=== PATIENT | female | born 1960 | race Caucasian/White ===

== ENCOUNTER 2019-01-03 06:36 | Observation (INO) ==
[2019-01-03] MEDS ORDERED: MIDAZOLAM HCL 1 MG/ML 2ML VIAL ONE (08:02)
[2019-01-03] MEDS ORDERED: HEPARIN (PORCINE) 1000 UNIT/ML 10 ML (CATH LAB USE ONLY) ONE (08:02)
[2019-01-03] MEDS ORDERED: fentaNYL citrate 100 MCG/2 ML VIAL ONE (08:02)
[2019-01-03] MEDS ORDERED: NITROGLYCERIN/D5W 100MCG/ML 20ML SYR ONE (08:03)
[2019-01-03] MEDS ORDERED: NiCARDipine HCL INJ 2.5 MG/ML 10 ML AMP ONE (08:03)
--- NOTE | 2019-01-03 08:26 | Pre Anesthesia Assessment ---
Date of Service January 03, 2019 Pre Sedation Assessment Vital Signs Temp Pulse Resp BP Pulse Ox 01/03/19 07:10 36.7 C 61 16 183/80 H 95 Cardiovascular RRR, no murmur, no edema Respiratory normal respiratory effort, lungs clear to auscultation Pre-Sedation Airway Assessment Smoking Status: Never smoker Hx Sleep Apnea: Yes Short, Thick Neck: No Thyromental Distance: > or= 3.5 Finger Breadths Oral Cavity: + WNL Mallampati Class: III ASA: ASA3 NPO Status Date of Last Intake of Fluids: 01/03/19 Time of Last Intake of Fluids: 06:30 Last Oral Intake of Fluids Comment: sips with pills Date of Last Intake of Solid Food: 01/02/19 Time of Last Intake of Solid Foods: 18:00 Procedure Planning Contraindications for Sedation: none Current Medications Reviewed: Yes Notes The planned sedation has been discussed with the patient. Informed Consent was obtained. I have identified the patient, determined the appropriateness of belinda tion and have assessed the patient immediately prior to the procedure. All medicine(s) and interventions are by my order.
--- NOTE | 2019-01-03 08:26 | History & Physical Bridge Note ---
Date of Service January 03, 2019 History & Physical Bridge Note I have examined the patient, reviewed the History & Physical and in the interval since the performance of the History & Physical I have noted the following changes of clinical significance: no changes noted
--- NOTE | 2019-01-03 09:02 | Post Anesthesia Assessment ---
Date of Service January 03, 2019 Post Sedation Assessment Vital Signs Temp Pulse Resp BP Pulse Ox 01/03/19 07:10 36.7 C 61 16 183/80 H 95 Post Sedation Plan On clinical assessment, the patient appears to have tolerated the sedation without complications. Patient is recovering as anticipated. Patient will continue to be monitored by nursing and may be discharged when sedation discharge criteria are met per below protocol. Upon Completions of procedure and additional 15 minutes continue every 5 minute vital signs and the P.A.R. score; then discharge to a Phase I or Fast Track to Phase II per the following guidelines: * Discharge Patient to appropriate Phase II area if PAR is 8 or greater or return to pre- procedure baseline. The post - procedure orders will be as directed. * If PAR score is less than 8 or not return to pre-procedure baseline then patient will follow Phase I monitoring till PAR is reached for Phase II. The Phase I may be done in procedure room or may call to secure a Phase I area. * If naloxone or flumazenil are used for reversal, hold in Phase I for continued monitoring from when last reversal dose was given for a minimum of 60 minutes or longer pending the nurse and/or physician discretion of patient condition before discharge to Phase II. Please call the Sedation Physician to re-evaluate and complete post-note for discharge to Phase II area. Do NOT discharge from procedure sedation or Phase 1 until post- sedation evaluation note is complete by procedure /sedation MD Sedation Discharge Instructions to be given to the patient at discharge to home.
--- NOTE | 2019-01-03 09:06 | Cardiac Catheterization ---
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 Start 0836. End 0854. 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 Holding/Recovery ACC Data: Fish Seiner Cardiac Status Clinical evaluation leading to the procedure CAD Presenation: Positive Stress Test (Equivocal stress test with reproduction of anginal symptoms at low workload.) and Stable angina Anginal Classification: CCS III Heart Failure: No Imaging Studies Past 6 Months: Yes Stress Studies Past 6 Months: Yes Stress Echocardiogram: Yes - Indeterminant Coronary Anatomy Dominant: Left Left Main (% Stenosis): Normal LAD (% Stenosis): Normal (Large, type III vessel which wraps around the left ventricular apex) D1 (% Stenosis): Normal D2 (% Stenosis): Normal (1m vessel) D3 (% Stenosis): Normal (1mm vessel) Circumflex (% Stenosis): Normal OM1 (% Stenosis): Normal L PL1 (% Stenosis): Normal L PDA (% Stenosis): Normal RCA (% Stenosis): Normal AM (% Stenosis): Normal Diagnostic Physicians Name: Lino Rosenberg DO Status: Elective Closure Device Percutaneous Entry Location: Radial Closure Device: Radial Band Recommendations: Medical Therapy and/or Counseling Intraprocedure Events Significant Disection: No Perforation: No
[2019-01-03] MEDS ORDERED: HydrALAZINE HCL 20 MG/ML VIAL ONE (10:37)
[2019-01-03] MEDS ORDERED: NITROGLYCERIN 2% OINTMENT 30GM TUBE ONE (11:20)
[2019-01-03] MEDS ORDERED: NITROGLYCERIN SL 0.4 MG/TAB TAB ONE (11:21)
[2019-01-03] MEDS ORDERED: LABETALOL HCL IV 5 MG/ML 20ML (CATH LAB USE ONLY) ONE (11:22)
[2019-01-03] MEDS ORDERED: hydroCHLOROthiazide 25 MG TAB PO STA (11:41)
[2019-01-03] MEDS ORDERED: hydroCHLOROthiazide 25 MG TAB ONE (11:49)
[2019-01-03] MEDS ORDERED: OPTIRAY 320 125ml IV PRN (12:38)
--- NOTE | 2019-01-03 12:48 | CT Scan Report ---
CT OF THE CHEST WITH IV CONTRAST CLINICAL HISTORY: Chest pain status post cardiac catheterization. Evaluate for dissection and pulmona ry embolism.. COMPARISON STUDY: No previous studies for comparison. TECHNIQUE: Unenhanced images were initially acquired through the thorax. Following the IV administra tion of 119 mL of Optiray-320, CT of the thorax was performed from the thoracic inlet to the lung bas es. Images are reviewed in the axial, sagittal, and coronal planes. IV contrast was administered with out complication. A dose lowering technique was utilized adhering to the principles of ALARA. Imaging was performed. CT DOSE: 1820.33 mGy.cm FINDINGS: Thyroid: The thyroid is either atrophic or surgically absent. Thoracic aorta: Noncontrast images reveal no evidence of acute thoracic hematoma. Postcontrast images reveal no evidence of thoracic aortic aneurysm or dissection. Pulmonary vasculature: There are no pulmonary artery filling defects to indicate acute pulmonary embo lism. The examination is moderately limited due to respiratory motion artifact. HEART: No pericardial effusion is visualized. Lungs and pleural spaces: There are no pleural effusions. There are dependent atelectatic changes. Th ere is respiratory motion artifact. No pneumothorax is visualized. Mediastinum: There is no mediastinal lymphadenopathy. Jessica: There is no nodes of pathologic hilar adenopathy Axilla: There is no nodes of pathologic axillary lymphadenopathy Upper abdomen: There is hepatic steatosis. There is hepatosplenomegaly. Skeletal structures: There are no lytic or blastic osseous lesions. IMPRESSION: 1. No evidence of thoracic aortic aneurysm or dissection 2. No evidence of acute pulmonary embolism 3. Hepatic steatosis. Hepatosplenomegaly 4. No evidence of pneumothorax. Electronically signed by: Tim Mendoza M.D. 01/03/2019 12:47 PM
--- NOTE | 2019-01-03 15:22 | History & Physical Report ---
Date of Service January 03, 2019 Assessment & Plan (1) S/P cardiac catheterization: (2) Chest pain: Pt had routine cardiac catheterization today secondary to angina and positive stress test. Cardiac cath with normal coronary arteries. Post cath patient developed mid chest pain improved with nitroglycerin. -monitor on tele -CTA chest negative for PE, dissection or pneumothorax -cardiology on board -nitroglycerin paste per cardiology -monitor cbc, bmp (3) HTN (hypertension): BP currently 158/82. BP was 184/81. Was given hydralazine 10mg po, HCTZ 25mg -continue lisinopril -monitor BP (4) Dyslipidemia: -continue statin (5) Hypothyroidism: -continue levothyroxine (6) GERD (gastroesophageal reflux disease): -continue H2 abigail (7) Sleep apnea: -CPAP HS (8) Urge incontinence of urine: -continue oxybutynin DVT Prophylaxis -SCDs, ambulate Follows with Dr Sy for routine care Pt was seen with Dr Castro. See addendum History of Present Illness Chief Complaint: CP post cardiac cath Primary Care Provider: Oniel Sy MD Pt is 58 y/o F with PMH HTN, dyslipidemia, hypothyroidism, GERD, MILO, obesity presented for routine cardiac catheterization today secondary to angina and positive stress test. Cardiac cath with normal coronary arteries. Post cath patient developed mid chest pain improved with nitroglycerin. Pt reports chronic SOB with climbing stairs, denies current SOB. Reports chronic lower extremity edema improves some with elevation. Denies fever/chills, diaphoresis, N/V/D/C, MARSHALL, dizziness, syncope, vision changes, neck pain, orthopnea, palpitations, cough, sore throat, choking, otalgia, rhinorrhea, abdominal pain, paresthesias, weakness, rashes, urinary symptoms. Allergies Allergy/AdvReac Type Severity Reaction Status Date / Time ibuprofen Allergy Intermediate HIVES Verified 09/17/14 09:31 shellfish derived Allergy Intermediate RASH Verified 09/17/14 09:31 Bactrim Allergy Unknown hives Verified 09/17/14 09:31 Home Medications Home Medications Medication Instructions Recorded Confirmed Type cholecalciferol (vitamin D3) 5,000 unit PO DAILY 01/02/19 01/02/19 History furosemide 80 mg PO WK PRN 01/02/19 01/02/19 History potassium chloride 10 meq PO WK 01/02/19 01/02/19 History ranitidine HCl 300 mg PO HS 01/02/19 01/02/19 History aspirin 81 mg PO DAILY 01/03/19 01/03/19 History folic acid 2 mg PO DAILY 01/03/19 01/03/19 History levothyroxine 200 mcg PO DAILY 01/03/19 01/03/19 History lisinopril 20 mg PO DAILY 01/03/19 01/03/19 History oxybutynin chloride 5 mg PO DAILY 01/03/19 01/03/19 History pravastatin 40 mg PO HS 01/03/19 01/03/19 History Past Med/Surg History Medical History Hypothyroidism (Chronic) GERD (gastroesophageal reflux disease) (Chronic) Dyslipidemia (Chronic) HTN (hypertension) (Chronic) Sleep apnea (Chronic 06/06/12) Tonsillectomy and adenoidectomy (Chronic 06/06/12) Urge incontinence of urine (Chronic 06/06/12) Surgical History Hx of cardiac cath (Chronic) 01/03/19 - [facility] - normal coronary arteries History of cholecystectomy (Chronic) Family History Other Coronary heart disease Diabetes Hypertension Social History Preferred Language: Senegalese Communication Ability: Effective Shift Mgr Required: No Beliefs That Will Affect Care: None Current Living Situation: Spouse Other Information That Helps Us Care for You: No Feels Safe at Home: Yes Safety Concerns: Feels Safe At This Time Smoking Status: Never smoker Hx Alcohol Use: No Hx Substance Use: No Review of Systems All systems reviewed & are unremarkable except as noted in HPI & below Physical Exam Vital Signs (Past 24 Hours): Last Vital Signs Temp 36.5 C 01/03/19 14:53 Pulse 73 01/03/19 14:53 Resp 18 01/03/19 14:53 BP 158/82 H 01/03/19 14:53 Pulse Ox 92 01/03/19 14:53 Physical Exam: General: no distress, obese Head: normocephalic, atraumatic Eyes: conjunctiva non-injected, anicteric ENT: normal inspection external ears, nose, mucous membranes moist Neck: supple, trachea midline Lungs: clear, no respiratory distress, no wheezing/rhonchi/rales CV: RRR, no murmur Abd: normal BS, soft, non-tender Ext: no cyanosis, no calf tenderness Neuro: A&O x 3, no focal deficits noted, normal affect Skin: warm, dry Results & Data ECG Rate (beats per minute): 79 Rhythm: sinus rhythm Supervising Physician Co-Signing Physician Notes I have seen and examined the patient and have discussed the case with the provider above. I agree with the assessment and plan as stated. Matthew,
[2019-01-03] MEDS: NITROGLYCERIN 2% OINTMENT 30GM TUBE EXT SCH ×2 (16:33→21:20)
[2019-01-03] MEDS ORDERED: ALUMINUM/MAGNESIUM SUSP 72 ML, LIDOCAINE HCL VISCOUS 2% 24 ML, BARCODE IDENTIFIER 1 EA PO PRN (20:08)
[2019-01-03] MEDS ORDERED: MoRPHine SULFATE 2 MG/ML CARP IV PRN (20:08)
[2019-01-03] MEDS ORDERED: CALCIUM CARBONATE 500 MG CHEWABLE TAB PO PRN (20:08)
[2019-01-03] MEDS ORDERED: TRAMADOL HCL 50 MG TABLET PO PRN (20:10)
[2019-01-03] MEDS ORDERED: PRAVASTATIN SOD 40 MG TAB PO SCH (21:00)
[2019-01-04] MEDS: NITROGLYCERIN 2% OINTMENT 30GM TUBE EXT SCH (00:42)
[2019-01-04] MEDS ORDERED: INFLUENZA VIRUS QUAD VACCINE 0.5 ML SYR IM ONE (01:30)
[2019-01-04] MEDS ORDERED: INFLUENZA ADMINISTRATION CHARGE ONE (01:30)
[2019-01-04] MEDS ORDERED: LEVOTHYROXINE SODIUM 200 MCG TABLET PO SCH (06:30)
[2019-01-04 07:25] LABS: Hematocrit (blood only) 39.7 % (37-47); Hemoglobin 13.5 g/dL (12.0-16.0); Mean Corpuscular Volume 92.3 fL (80-100); Mean Platelet Volume 10.9 fL (7.4-10.4); Platelet Count 174 K/uL (130-400); RDW Coefficient of Variation 12.8 % (11.5-14.5); RDW Standard Deviation 42.9 fL (36.4-46.3); White Blood Count 8.43 K/uL (4.8-10.8)
[2019-01-04 07:47] LABS: BUN Creatinine Ratio 19.4 (10-20); Calcium 9.3 mg/dl (8.5-10.1); Creatinine Clr Calc Pharmacy 103.8 ml/min; Est GFR (African American) 83.4; Est GFR (Non-African American) 71.9; Magnesium 2.1 mg/dl (1.8-2.4); Potassium 3.7 mmol/L (3.5-5.1)
[2019-01-04] MEDS ORDERED: FOLIC ACID 1 MG TAB PO SCH (09:00)
[2019-01-04] MEDS ORDERED: OXYBUTYNIN CHLORIDE XL 5 MG TABCR PO SCH (09:00)
[2019-01-04] MEDS ORDERED: CHOLECALCIFEROL 1,000 UNITS TAB PO SCH (09:00)
[2019-01-04] MEDS ORDERED: LISINOPRIL 20 MG TAB PO SCH (09:00)
[2019-01-04] MEDS ORDERED: ASPIRIN 81 MG ECTAB PO SCH (09:00)
--- NOTE | 2019-01-04 09:21 | Hospitalist Progress Note ---
Date of Service January 04, 2019 Assessment & Plan (1) S/P cardiac catheterization: (2) Chest pain: Pt had routine cardiac catheterization 01/03/19 secondary to angina and positive stress test. Cardiac cath with normal coronary arteries. Post cath patient developed substernal chestpain; therefore admitted for overnight observation Tele monitoring overnight revealed sinus mallory-NSR 50-70s CTA chest done yesterday negative for PE, dissection or pneumothorax Cardiology following Blood pressure much improved and no ECG changes, HCTZ added Sx improved with tramadol administration Sx likely non cardiac in origin given normal coronary arteries, would recommend significant weight loss program which may help alleviate sx Cardiology has seen and evaluated the patient and she is cleared for discharge (3) HTN (hypertension): BP improved 141/68 HR 59 continue lisinopril, HCTZ added per cardiology (4) Dyslipidemia: continue statin (5) Hypothyroidism: continue levothyroxine TSH WNL 10/2017 check TSH (6) Elevated fasting glucose: -bsg 118 -A1C 6.1 11/22/18 -recommend diet and lifestyle modifications (7) GERD (gastroesophageal reflux disease): continue H2 abigail (8) Sleep apnea: CPAP HS (9) Urge incontinence of urine: continue oxybutynin DVT Prophylaxis SCDs, ambulate Disposition: Patient to be discharged today Follows with Dr Sy for routine care, hospital follow up 01/09/19 @ 11:05am Pt was seen and examined in collaboration with Dr. Em, please see addendum Supervising Physician Co-Signing Physician Notes Patient is seen and examined at bedside. Offers no complaints. Denies any chest pain, shortness of breath, dizziness, abdominal pain, nausea. Eager to get discharged. On exam patient is obese, no distress, lungs are clear to auscultation, S1-S2, positive murmur, abdomen soft nontender, bilateral nonpitting edema, neurologically no focal deficits. Patient had normal coronary arteries on cardiac catheterization. HCTZ added for blood pressure control. Patient plan to be discharged. Needs follow-up with cardiology as outpatient upon discharge. I personally reviewed the record. Patient is interviewed and examined at bedside. Patient's care is coordinated with Arlyn Gottlieb PA-C. Please refer to the documentation above for details of patient's presentation and for discussion of other issues. Subjective Patient was seen and evaluated in room 239-2 Follow-up s/p cardiac catheterization on 01/03 postop chest pain and HTN. She is sitting up in bedside chair. Overall feels well this morning. States she had episode of chest pain this morning when going to bathroom. Recently received tramadol which improved and alleviated symptoms. Currently no chest pain present. Postop yesterday she developed chest pain that was 8/10. Made worse with exertion. Symptoms similar to prior chest pain which prompted cardiac cath. Chest pain is substernal, nonradiating, lasted approximately 10 minutes, recently alleviated with tramadol, not improved with nitro or Nitropaste. Symptoms are not positional and are not made worse with deep breaths or movement. They can come on at rest and with exertion. Symptoms not related to meals, although she did have episode last evening after eating dinner. She denies and sob, pleitez, palpitations, n/v, weakness, lightheaded, dizziness associated with chest pain. Further denies f/c/s, abdominal pain, change in bowel or urinary habits. Ate all of breakfast w/o difficulty. Physical Exam Vital Signs (Past 24 Hours): Last Vital Signs Temp 36.5 C 01/04/19 07:51 Pulse 59 L 01/04/19 09:07 Resp 18 01/04/19 07:51 BP 141/68 H 01/04/19 09:07 Pulse Ox 96 01/04/19 07:51 Physical Exam: Gen: WD/WN, F, morbidly obese, sitting in bedside chair, NAD, A&O x3 HEENT: Normocephalic, atraumatic, conjunctivae moist, sclerae anicteric, mucous membranes moist. Lung: Clear to Auscultation bilaterally, no wheezes/rales/rhonchi Heart: Regular rate, regular rhythm, soft 1/6 HOANG noted RUSB, no rubs, or gallops Abdomen: Soft, NT, +obese, +BS x 4 Extremities: b/l nonpitting edema Skin: Warm, no rash, negative turgor. Results & Data Laboratory Results Short CBC 01/04/19 Range/Units 07:03 WBC 8.43 (4.8-10.8) K/uL Hgb 13.5 (12.0-16.0) g/dL Hct 39.7 (37-47) % Plt Count 174 (130-400) K/uL BMP 01/04/19 07:03 Sodium 141 Potassium 3.7 Chloride 109 H Carbon Dioxide 26 BUN 17 Creatinine 0.88 Glucose 118 H Calcium 9.3 Diagnostic Findings CTA Chest: IMPRESSION: 1. No evidence of thoracic aortic aneurysm or dissection 2. No evidence of acute pulmonary embolism 3. Hepatic steatosis. Hepatosplenomegaly 4. No evidence of pneumothorax. Medications Administered Ioversol (Optiray 320 125ml) 119 ml IV ONCE PRN PRN Reason: Interaction Checking Stop: 01/07/19 12:37 Last Admin: 01/03/19 12:38 Dose: 119 ml Documented by: [id number] Pravastatin Sodium (Pravachol) 40 mg PO HS [facility] Stop: 02/02/19 20:59 Last Admin: 01/03/19 22:19 Dose: 40 mg Documented by: [id number] Ranitidine HCl (Zantac) 300 mg PO HS [facility] Stop: 02/02/19 20:59 Last Admin: 01/03/19 22:20 Dose: 300 mg Documented by: [id number] Tramadol HCl (Ultram) 50 mg PO Q4H PRN PRN Reason: Pain Stop: 02/02/19 20:09 Last Admin: 01/03/19 21:24 Dose: 50 mg Documented by: [id number] Discontinued Medications Fentanyl Citrate (Fentanyl Citrate) Confirm Administered Dose 100 mcg .ROUTE .STK-MED ONE Stop: 01/03/19 08:03 Last Increment: 01/03/19 08:55 Dose: 12.5 mcg Documented by: [id number] Heparin Sodium (Porcine) (Heparin Iv Bolus (Payroll Examiner Use Only)) Confirm Administered Dose 10,000 units .ROUTE .STK-MED ONE Stop: 01/03/19 08:03 Last Admin: 01/03/19 08:55 Dose: 5,000 units Documented by: [id number] Heparin Sodium/Sodium Chloride (Heparin/Nss 1000 Unit/500ml Flush Bag) Confirm Administered Dose 3,000 units IV .STK-MED ONE Stop: 01/03/19 08:04 Last Admin: 01/03/19 08:56 Dose: 3,000 units Documented by: [id number] Hydralazine HCl (Hydralazine Hcl) Confirm Administered Dose 20 mg .ROUTE .STK- MED ONE Stop: 01/03/19 10:38 Last Admin: 01/03/19 10:46 Dose: 10 mg Documented by: [id number] Hydrochlorothiazide (Hctz) Confirm Administered Dose 25 mg .ROUTE .[facility] [employer] ONE Stop: 01/03/19 11:50 Last Admin: 01/03/19 13:27 Dose: 25 mg Documented by: [id number] Labetalol HCl (Normodyne (Payroll Examiner Use Only)) Confirm Administered Dose 5 mg .ROUTE .A [employer] ONE Stop: 01/03/19 11:23 Last Admin: 01/03/19 15:12 Dose: Not Given Documented by: [id number] Midazolam HCl (Versed) Confirm Administered Dose 2 mg .ROUTE .A [employer] ONE Stop: 01/03/19 08:03 Last Increment: 01/03/19 08:55 Dose: 1 mg Documented by: [id number] Nicardipine HCl (Cardene) Confirm Administered Dose 25 mg .ROUTE .[employer] ONE Stop: 01/03/19 08:04 Last Admin: 01/03/19 08:56 Dose: 25 mg Documented by: [id number] Nitroglycerin (Nitro-Bid 2%) Confirm Administered Dose 18 inch .ROUTE .[employer] ONE Stop: 01/03/19 11:21 Last Admin: 01/03/19 15:12 Dose: Not Given Documented by: [id number] Nitroglycerin (Nitrostat) Confirm Administered Dose 0.4 mg .ROUTE .[employer] ONE Stop: 01/03/19 11:22 Last Admin: 01/03/19 13:28 Dose: 0.4 mg Documented by: [id number] Nitroglycerin (Nitro-Bid 2%) 0.5 inch EXT Q6H JUDIE Stop: 02/02/19 12:59 Last Admin: 01/04/19 00:42 Dose: 0.5 inch Documented by: [id number] Admin: 01/03/19 21:20 Dose: 0.5 inch Documented by: [id number] Admin: 01/03/19 16:33 Dose: 0.5 inch Documented by: [id number] Nitroglycerin/Dextrose (Nitroglycerin/D5w 100 Mcg/Ml 20ml Syringe) Confirm Administered Dose 2,000 mcg .ROUTE .[employer] ONE Stop: 01/03/19 08:04 Last Admin: 01/03/19 08:56 Dose: 2,000 mcg Documented by: [id number] ECG Rate (beats per minute): 56 Rhythm: sinus bradycardia
--- NOTE | 2019-01-04 09:50 | Cardiology Progress Note ---
Date of Service January 04, 2019 Assessment & Plan (1) Hypertensive urgency: Blood pressure improved. HCTZ added. Continue as outpatient. Patient may be discharged from a CV perspective. Outpatient follow up with Dr. Mishra in 4 weeks. (2) S/P cardiac catheterization: Normal coronary arteries. Subjective Patient seen and examined at the bedside. No recurrent chest discomfort overnight. BP improved. No complaints. Review of Systems All systems reviewed & are unremarkable except as noted in HPI & below Physical Exam Vital Signs (Past 24 Hours): Last Vital Signs Temp 36.5 C 01/04/19 07:51 Pulse 59 L 01/04/19 09:07 Resp 18 01/04/19 07:51 BP 141/68 H 01/04/19 09:07 Pulse Ox 96 01/04/19 07:51 Physical Exam: General: NAD, AAO x3, well nourished. obese. HEENT: Normocephalic. Atraumatic. Conjunctiva pink, no scleral icterus. Neck: No carotid bruits, the carotid upstrokes are brisk. No JVD. No HJR Heart: Regular normal S-1 and S-2 no S-3 or S-4 gallop. No murmurs or rub appreciated. PMI is not displaced. No RV heave. Lungs: Clear bilateral without rales , rhonchi, or wheeze. Abdomen: Normal bowel sounds. Soft. Nontender. No masses or organ omegaly. No abdominal bruits. Extremities: No clubbing, cyanosis, or edema. Pulses: radial=2/4, Dorsalis pedis =2/4, posterior tibial=2/4. Neuro: Cranial nerves grossly intact. No focal motor deficit.
[2019-01-04 10:48] LABS: T4 Free Thyroxine 1.52 ng/dl (0.8-1.6)
--- NOTE | 2019-01-04 13:13 | Discharge Summary ---
Date of Service January 04, 2019 Admission HPI Per Admitting Provider Pt is 58 y/o F with PMH HTN, dyslipidemia, hypothyroidism, GERD, MILO, obesity presented for routine cardiac catheterization today secondary to angina and positive stress test. Cardiac cath with normal coronary arteries. Post cath patient developed mid chest pain improved with nitroglycerin. Pt reports chronic SOB with climbing stairs, denies current SOB. Reports chronic lower extremity edema improves some with elevation. Denies fever/chills, diaphoresis, N/V/D/C, MARSHALL, dizziness, syncope, vision changes, neck pain, orthopnea, palpitations, cough, sore throat, choking, otalgia, rhinorrhea, abdominal pain, paresthesias, weakness, rashes, urinary symptoms. Admission Exam Per Admitting Provider General: no distress, obese Head: normocephalic, atraumatic Eyes: conjunctiva non-injected, anicteric ENT: normal inspection external ears, nose, mucous membranes moist Neck: supple, trachea midline Lungs: clear, no respiratory distress, no wheezing/rhonchi/rales CV: RRR, no murmur Abd: normal BS, soft, non-tender Ext: no cyanosis, no calf tenderness Neuro: A&O x 3, no focal deficits noted, normal affect Skin: warm, dry Principal Diagnosis Chest Pain HTN urgency HLD MILO Discharge Exam Gen: WD/WN, F, morbidly obese, sitting in bedside chair, NAD, A&O x3 HEENT: Normocephalic, atraumatic, conjunctivae moist, sclerae anicteric, mucous membranes moist. Lung: Clear to Auscultation bilaterally, no wheezes/rales/rhonchi Heart: Regular rate, regular rhythm, soft 1/6 HOANG noted RUSB, no rubs, or gallops Abdomen: Soft, NT, +obese, +BS x 4 Extremities: b/l nonpitting edema Skin: Warm, no rash, negative turgor. Discharge Data Allergies Allergy/AdvReac Type Severity Reaction Status Date / Time ibuprofen Allergy Intermediate HIVES Verified 09/17/14 09:31 shellfish derived Allergy Intermediate RASH Verified 09/17/14 09:31 Bactrim Allergy Unknown hives Verified 09/17/14 09:31 Consultations 01/03/19 12:28 Consult Hospitalist Routine 01/03/19 14:57 Consult Cardiology Routine Procedures Performed Operation Date: 01/03/19 08:00 Actual Procedures p Cath, Left with Cors and Vent - Lino Rosenberg DO s Cineradiography w/Routine Exam - Lino Rosenberg DO Ordered Studies 01/03/19 07:29 CL Cath Imgs for PACS use only Routine 01/03/19 12:27 CT angio chest dissec wo/w con Stat Hospital Course (1) S/P cardiac catheterization: (2) Chest pain: Pt had routine cardiac catheterization 01/03/19 secondary to angina and positive stress test. Cardiac cath with normal coronary arteries. Post cath patient developed substernal chest pain; therefore admitted for overnight observation Tele monitoring revealed sinus mallory-NSR 50-70s CTA chest done negative for PE, dissection or pneumothorax Blood pressure much improved and no ECG changes, HCTZ 25mg added to regimen Sx improved with tramadol administration Sx likely non cardiac in origin given normal coronary arteries, would recommend significant weight loss program which may help alleviate sx (3) HTN (hypertension): BP improved 141/68 HR 59 continue lisinopril, HCTZ added per cardiology (4) Dyslipidemia: continue statin (5) Hypothyroidism: continue levothyroxine TSH WNL 10/2017 check TSH (6) Elevated fasting glucose: -bsg 118 -A1C 6.1 11/22/18 -recommend diet and lifestyle modifications (7) GERD (gastroesophageal reflux disease): continue H2 abigail (8) Sleep apnea: CPAP HS (9) Urge incontinence of urine: continue oxybutynin DVT Prophylaxis SCDs, ambulate Disposition: Patient to be discharged today Follows with Dr Sy for routine care, hospital follow up 01/09/19 @ 11:05am Pt was seen and examined in collaboration with Dr. Em, please see addendum Total Time Total Time Spent Total Time Spent (In Minutes): 35 minutes Total Time Includes: Examination of the Patient, Discharge Planning, Medication Reconciliation and Communication With Other Providers Discharge Plan Discharge Items Patient Disposition: Home - Self-Care Reason For Visit: Chest Pain; Equivocal Stress Echo Discharge Diagnosis: Chest Pain Status post cardiac catheterization. Normal coronary arteries. Discharge Goals: Diagnostic testing and Improve function Activity: Per 'Additional Instructions' section Exercise/Sports: Gradually increase as tolerated Non-emergency contact: Primary Care Provider and Go Cart Mechanic Call non-emergency contact if: you have any medication questions, your symptoms worsen, your pain is not controlled, your pain is worsening, your pain is unusual for you, your pain is concerning for you, you have a fever, your wound has increased redness, your wound has increased drainage and your wound pain has increased Follow-up/Referrals: Oniel Sy MD [Primary Care Provider] - 01/09/19 11:05 am Diet: Heart Healthy [facility] Provider Instructions: Follow up with your PCP on January 09, 2019 at 11:05AM Follow up with your Go Cart Mechanic as Scheduled Get Basic Metabolic Panel (Blood Test) in 1 week and follow up with your Physician Seek immediate medical attention if your symptoms reoccur or worsen ACTIVITY RECOMMENDATIONS: Excess manipulation of the wrist should be avoided for the next 24-48 hours. * No lifting over 2 pounds (approximately a 1/2 gallon of milk) with the utilized arm for 24 hours. * No strenuous activity such as bowling or tennis for 3 days. * Keep the site of the procedure covered with a bandage for 24 hours. *You may shower the day after the procedure. Do not take a tub bath or submerge the puncture site in water for the next 3 days. *Do not operate any motorized equipment for 3 days. SPECIAL CARE INSTRUCTIONS: The site may be slightly bruised and sore following your procedure. Should any of the following occur, contact the Dr. who performed your procedure. 1. Redness/inflammation, swelling, chills, or fever, or colored drainage at procedure site within 3-7 days after your procedure. 2. Coldness, discoloration, ongoing numbness, severe pain, or swelling. Expect mild tingling of hand and tenderness at the puncture site for up to three days. If this persists beyond three days, or other symptoms develop, notify the Dr. who performed your procedure. BLEEDING: If the procedure site on your wrist begins to bleed, do not panic 1. Place 1 or 2 fingers firmly just slightly above the insertion site to stop the bleeding. You may be able to feel your pulse as you hold pressure. 2. Lift your finger after 5 minutes to see if the bleeding has stopped. 3. Once the bleeding has stopped, gently wipe the wrist area clean with a bandage. * If the bleeding from your wrist does not stop after 10 minutes, or if there is a large amount of bleeding or spurting, call 911 ([address] not drive yourself to the hospital). SKIN IRRITATION: * You may experience some redness and/or swelling in the area where radiation was administered. If any skin irritation occurs, please contact your family physician. FOLLOW UP VISIT: Keep any scheduled doctor appointments. Prescriptions: Continued potassium chloride 10 mEq Capsule, Extended Release 10 meq PO WK RF: 0 ranitidine HCl 300 mg Tablet 300 mg PO HS RF: 0 furosemide 80 mg Tablet 80 mg PO WK PRN (Reason: Edema) RF: 0 cholecalciferol (vitamin D3) 5,000 unit Capsule 5,000 unit PO DAILY RF: 0 pravastatin 40 mg Tablet 40 mg PO HS RF: 0 lisinopril 20 mg Tablet 20 mg PO DAILY RF: 0 aspirin 81 mg Tablet,Delayed Release (Dr/Ec) 81 mg PO DAILY RF: 0 oxybutynin chloride 5 mg Tablet Extended Release 24hr 5 mg PO DAILY RF: 0 folic acid 1 mg Tablet 2 mg PO DAILY RF: 0 levothyroxine 200 mcg Tablet 200 mcg PO DAILY RF: 0 Stand-Alone Forms: [employer] [facility] [employer], Work/School Release (Inpt) Krames/Other Patient Handouts: Angina, Angina Heart Attack Recognize, Cath Cardiac Dc Discharge Orders: Discharge Order (Routine); Ordered 01/03/19 Ordered By: Lino Rosenberg Admission Data Admit Date/Time: 01/03/19 12:31 Attending Provider: [place] Em Admit Provider: Lino Rosenberg Primary Care Provider: Oniel Sy Other Providers: Quoc Rendon Thomas O Service: Telemetry Other Interventions: Discharge Summary Assessment (RN) Last Done: 01/04/19 14:21 Pending Studies at Discharge: Yes Studies:: Hydrochlorothiazide added due to elevated blood pressure. Prescription sent to pharmacy electronically. Repeat lab test: basic metabolic panel in 1 week. DC Date/Time DO NOT enter until pt leaves facility: 01/04/19 15:09
== END 2019-01-04 15:09 | disposition home or self-care (01) ==
LOC: CC 06:36 → 2S 06:36 → SUATTDRO 12:31
DX: Z88.6 Allergy status to analgesic agent; Z88.1 Allergy status to other antibiotic agents; I20.9 Angina pectoris, unspecified; G47.33 Obstructive sleep apnea (adult) (pediatric); Z68.43 Body mass index [BMI] 50.0-59.9, adult; Z79.82 Long term (current) use of aspirin; Z82.49 Family history of ischemic heart disease and other diseases of the circulatory system; E78.5 Hyperlipidemia, unspecified; E66.9 Obesity, unspecified; E03.9 Hypothyroidism, unspecified; Z79.899 Other long term (current) drug therapy; R07.9 Chest pain, unspecified; K21.9 Gastro-esophageal reflux disease without esophagitis; R32 Unspecified urinary incontinence; I10 Essential (primary) hypertension

== ENCOUNTER 2020-02-26 05:21 | Observation (INO) ==
--- NOTE | 2020-02-21 12:28 | Anesthesiology Consultation ---
Date of Service February 21, 2020 Assessment & Plan (1) Encounter for pre-operative examination: Chart Review Chart Review: Acceptable Risk for Surgery (pending Covid testing results from 02/20 and testing DOS) and Patient NOT seen in Pre Admission Testing Per nursing assessment 02/21/2020, patient resides in [facility]. Travel to [facility] to go [id number] mask, no known exposure to COVID. Travels to [facility]. No known contact with PUIs or Covid positive people. No current Covid related symptoms. Did have COVID testing done 02/21/2020 per surgeon requestresults pending. - Check BSG AM DOS -Pt surgery rescheduled due to Covid from November to 02/26/20- surgeon did not update labs/EKG now out of date- will order CBC, PRP, PT/INR and EKG for AM of surgery Last seen by cardio 06/26/19= routine follow-up. Initially seen for shortness of breathsubsequently had stress test and cardiac cath which showed angiographically normal coronary arteries. Cardio believes majority of her shortness of breath is due to her weight and deconditioning as her cardiac work- up suggest noncardiac cause with normal coronary arteries on cardiac cath, history not suggestive of heart failure due to diastolic dysfunction. Blood pressure controlled continue current meds. Follow-up in 1 year History Surgery Operation Date: 02/26/20 11:10 Proposed Procedures p Right Total Knee Arthroplasty - Matthew Be, Height/Weight Height: 5 ft 6 in Weight: 140.614 kg Allergies Allergy/AdvReac Type Severity Reaction Status Date / Time ibuprofen Allergy Intermediate hives Verified 02/21/20 07:53 sulfamethoxazole Allergy Intermediate hives Verified 02/21/20 07:53 trimethoprim Allergy Intermediate hives Verified 02/21/20 07:53 shellfish derived Allergy Mild rash Verified 02/21/20 07:53 Bactrim Allergy Unknown hives Verified 09/17/14 09:31 Medications Home Medications Medication Instructions Recorded Confirmed Last Taken cholecalciferol (vitamin D3) 5,000 unit PO DAILY 01/02/19 02/21/20 Unknown furosemide 80 mg PO WK PRN 01/02/19 02/21/20 Unknown potassium chloride 10 meq PO UD PRN 01/02/19 02/21/20 Unknown ranitidine HCl 300 mg PO HS 01/02/19 02/21/20 Unknown aspirin 81 mg PO DAILY 01/03/19 02/21/20 Unknown folic acid 2 mg PO DAILY 01/03/19 02/21/20 Unknown levothyroxine 200 mcg PO QAM 01/03/19 02/21/20 Unknown oxybutynin chloride 5 mg PO QAM 01/03/19 02/21/20 Unknown pravastatin 40 mg PO HS 01/03/19 02/21/20 Unknown calcium carbonate [Calcium 500] 500 mg PO DAILY 11/30/19 02/21/20 Unknown hydrochlorothiazide 25 mg PO QAM 11/30/19 02/21/20 Unknown metformin 500 mg PO BID 11/30/19 02/21/20 Unknown Past Medical History Medical History Arthritis Dyslipidemia GERD (gastroesophageal reflux disease) controlled History of kidney stones HTN (hypertension) Hypothyroidism Morbid obesity Prediabetes on Metformin Sleep apnea cannot tolerate CPAP Past Family History Family History Father Diabetes Grandmother (Paternal) Family hx of colon cancer Other Coronary heart disease Hypertension Past Surgical History Surgical History History of cataract surgery RT/LEFT History of cholecystectomy History of colonoscopy History of D&C + D&E History of foot surgery left History of left knee surgery History of surgery X2 RIB SURGERIES History of surgery on left wrist GANGLION CYST History of toe surgery L X2 (PLATE) Hx of cardiac cath 01/03/19- normal coronary arteries Status post trigger finger release hx Tonsillectomy and adenoidectomy (06/06/12) hx Social History Smoking Status: Never smoker Do You Dip or Chew Tobacco: No Hx Alcohol Use: No Hx Substance Use: No substance use type: does not use Testing Laboratory Results HGB A1C 11/13/19= 6.1 Electrocardiogram Date: 01/04/19 Findings: + SB @ (56) Chest X-Ray Date: 12/06/19 Findings: + NAD and + cardiomegaly Minimal left lung base densities suggest atelectasis. The lungs are hyperinflated with diaphragmatic flattening. Mild blunting of the posterior costophrenic angles Stress Test Date: 12/08/18 Type: exercise 1.9 METs. An accelerated heart rate response to minimal exercise was observed along with hypertensive blood pressure response, and marked dyspnea with minimal activity was observed. There is no EKG or echocardiographic evidence of resting or inducible ischemia, however the sensitivity of the test is reduced due to the low workload. If the clinical suspicion for underlying CAD remains high, consider clinical cardiology consultation. LV ejection fraction is 55-59% (normal). The left ventricular cavity size is normal. The LV wall thickness is mildly increased (concentric). Grade I DD. 84% MPHR. Cardiac Catheterization Date: 01/03/19 Dominant: Left Left Main (% Stenosis): Normal LAD (% Stenosis): Normal (Large, type III vessel which wraps around the left ve ntricular apex) D1 (% Stenosis): Normal D2 (% Stenosis): Normal (1m vessel) D3 (% Stenosis): Normal (1mm vessel) Circumflex (% Stenosis): Normal OM1 (% Stenosis): Normal L PL1 (% Stenosis): Normal L PDA (% Stenosis): Normal RCA (% Stenosis): Normal AM (% Stenosis): Normal Medical therapy recommended.
--- NOTE | 2020-02-22 09:01 | History & Physical Report ---
Date of Service February 22, 2020 Assessment & Plan (1) Osteoarthritis of right knee: We will proceed with a right total knee arthroplasty. Postoperatively she will be placed on aspirin for DVT prophylaxis and kept overnight in the hospital for postoperative medical management. She plans to use energy physical therapy upon discharge. Lynsey is a high risk for knee replacement surgery due to her diabetes and her morbid obesity with a BMI of 50. Present on Admission?: Yes History of Present Illness Chief Complaint: Primary osteoarthritis of the right knee Primary Care Provider: Oniel Sy MD Lynsey is a pleasant 59-year-old female who has been dealing with chronic increasing right knee pain. X-rays and clinical examination have been diagnostic for advanced osteoarthritis of the right knee. After failing extensive conservative treatment, she has elected to proceed with a right total knee arthroplasty. Allergies Allergy/AdvReac Type Severity Reaction Status Date / Time ibuprofen Allergy Intermediate hives Verified 02/21/20 07:53 sulfamethoxazole Allergy Intermediate hives Verified 02/21/20 07:53 trimethoprim Allergy Intermediate hives Verified 02/21/20 07:53 shellfish derived Allergy Mild rash Verified 02/21/20 07:53 Bactrim Allergy Unknown hives Verified 09/17/14 09:31 Home Medications Home Medications Medication Instructions Recorded Confirmed Type cholecalciferol (vitamin D3) 5,000 unit PO DAILY 01/02/19 02/21/20 History furosemide 80 mg PO WK PRN 01/02/19 02/21/20 History potassium chloride 10 meq PO UD PRN 01/02/19 02/21/20 History ranitidine HCl 300 mg PO HS 01/02/19 02/21/20 History aspirin 81 mg PO DAILY 01/03/19 02/21/20 History folic acid 2 mg PO DAILY 01/03/19 02/21/20 History levothyroxine 200 mcg PO QAM 01/03/19 02/21/20 History oxybutynin chloride 5 mg PO QAM 01/03/19 02/21/20 History pravastatin 40 mg PO HS 01/03/19 02/21/20 History calcium carbonate [Calcium 500] 500 mg PO DAILY 11/30/19 02/21/20 History hydrochlorothiazide 25 mg PO QAM 11/30/19 02/21/20 History metformin 500 mg PO BID 11/30/19 02/21/20 History Past Med/Surg History Medical History Arthritis Dyslipidemia GERD (gastroesophageal reflux disease) controlled History of kidney stones HTN (hypertension) Hypothyroidism Morbid obesity Prediabetes on Metformin Sleep apnea cannot tolerate CPAP Surgical History History of cataract surgery RT/LEFT History of cholecystectomy History of colonoscopy History of D&C + D&E History of foot surgery left History of left knee surgery History of surgery X2 RIB SURGERIES History of surgery on left wrist GANGLION CYST History of toe surgery L X2 (PLATE) Hx of cardiac cath 01/03/19- normal coronary arteries Status post trigger finger release hx Tonsillectomy and adenoidectomy (06/06/12) hx Family History Father Diabetes Grandmother (Paternal) Family hx of colon cancer Other Coronary heart disease Hypertension Social History Preferred Language: Romansh Communication Ability: Effective Bottle Labeler Required: No Beliefs That Will Affect Care: None Current Living Situation: Spouse Feels Safe at Home: Yes Smoking Status: Never smoker Second Hand Exposure: Yes ( A CHILD) ; Hx Alcohol Use: No Hx Substance Use: No Review of Systems Review of Systems: All systems reviewed & are unremarkable except as noted in HPI & below Physical Exam Constitutional: WD/WN, vitals as above Eyes: PERRL, conjunctivae normal, anicteric sclerae ENMT: external ear and nose normal, oropharynx normal Neck: trachea midline, no thyromegaly Respiratory: normal respiratory effort Cardiovascular: RRR, no murmur, no edema Gastrointestinal (Abdomen): normal bowel sounds, soft, nontender, no hepatosplenomegaly Musculoskeletal: On physical examination of the right knee there is a trace effusion. There is near full range of motion and no evidence of instability. There is significant tenderness palpation along the medial and lateral joint lines and over the distal femoral condyles. Psychiatric: A+Ox3, euthymic affect Results & Data Results & Data ([facility]) Diagnostic Findings Radiographs of the right knee demonstrate advanced osteoarthritis with joint space narrowing osteophyte formation and [id number] articulation. PG Care Time/CCT Total # of Minutes Spent Total Time Spent with Patient: Total time spent is greater than 50% in coordination of care (as documented) at patient's floor/unit and/or counseling patient: Coding Level of Care Code 93885 Initial Inpt Care Lvl 3 Diagnoses Osteoarthritis of right knee M17.11
[2020-02-26] MEDS ORDERED: TRANEXAMIC ACID 1,000 MG **IV Intra-op IV SCH (06:00)
[2020-02-26] MEDS ORDERED: FAMOTIDINE 20 MG TAB PO SCH (06:00)
[2020-02-26] MEDS ORDERED: LR 500ML BOLUS, THEN 15ML/HR IV SCH (06:00)
[2020-02-26] MEDS ORDERED: TRANEXAMIC ACID 1,000 MG **IV Pre-op IV SCH (06:00)
[2020-02-26] MEDS ORDERED: ROPIVACAINE 0.5% HCL/PF 150 MG, BUPIVACAINE 0.5% MPF 30 ML, EPINEPHrine 0.15 MG, dexAME... INFIL SCH (06:00)
[2020-02-26] MEDS ORDERED: GABAPENTIN 600 MG DOSE PO SCH (06:00)
[2020-02-26] MEDS ORDERED: dexAMETHasone 4 MG TAB PO SCH (06:00)
[2020-02-26] MEDS ORDERED: ROPIVACAINE 0.5% HCL/PF 150 MG, BUPIVACAINE 0.5% MPF 30 ML, EPINEPHrine 30MG/30ML (OR U... INFIL SCH (06:00)
[2020-02-26] MEDS ORDERED: ACETAMINOPHEN 500 MG TAB PO SCH (06:00)
[2020-02-26] MEDS ORDERED: LR 60ML/HR IV SCH (06:00)
[2020-02-26] MEDS ORDERED: CEFAZOLIN 3000MG 72.5 ML IV SCH (06:00)
[2020-02-26] MEDS ORDERED: ROPIVACAINE 0.5% 5 MG/ML 30 ML VIAL ONE (06:24)
[2020-02-26 06:25] LABS: Basophils # (auto) 0.04 K/uL (0-0.2); Basophils % (auto) 0.7 %; Eosinophils # (auto) 0.21 K/uL (0-0.5); Eosinophils % (auto) 3.4 %; Hemoglobin 14.5 g/dL (12.0-16.0); Immature Granulocytes # (auto) 0.02 K/uL (0.00-0.02); Immature Granulocytes % (auto) 0.3 %; Lymphocytes # (auto) 1.86 K/uL (1.2-3.4); Lymphocytes % (auto) 30.3 %; Mean Corpuscular Volume 93.2 fL (80-100); Monocytes # (auto) 0.49 K/uL (0.11-0.59); Neutrophils # (auto) 3.52 K/uL (1.4-6.5); Neutrophils % (auto) 57.3 %; Platelet Count 202 K/uL (130-400); RDW Coefficient of Variation 13.4 % (11.5-14.5); RDW Standard Deviation 45.8 fL (36.4-46.3); Red Blood Count 4.83 M/uL (4.2-5.4); White Blood Count 6.14 K/uL (4.8-10.8)
[2020-02-26] MEDS ORDERED: EPINEPHrine INJ 1 MG/ML AMP ONE (06:25)
[2020-02-26] MEDS ORDERED: BUPIVACAINE 0.5 % 5 MG/1 ML PF 10ML VIAL ONE (06:25)
[2020-02-26 06:27] LABS: Mean Corpuscular Hgb Conc 32.2 g/dL (32-36)
--- NOTE | 2020-02-26 06:27 | History & Physical Bridge Note ---
Date of Service February 26, 2020 History & Physical Bridge Note I have examined the patient, reviewed the History & Physical and in the interval since the performance of the History & Physical I have noted the following changes of clinical significance: no changes noted
[2020-02-26 06:36] LABS: Partial Thromboplastin Time 27.8 Seconds (21.0-31.0)
[2020-02-26] MEDS ORDERED: ONDANSETRON INJ 2 MG/ML 2 ML VIAL ONE (06:42)
[2020-02-26] MEDS ORDERED: MIDAZOLAM HCL 1 MG/ML 2ML VIAL ONE (06:42)
[2020-02-26] MEDS ORDERED: KETAMINE HCL INJ 50 MG/ML 10 ML VIAL ONE (06:42)
[2020-02-26] MEDS ORDERED: PROPOFOL IV EMULSION 10 MG/ML 20 ML VIAL IV ONE (06:42)
[2020-02-26] MEDS ORDERED: ORTHO JOINT ANESTHETIC ONE (06:55)
[2020-02-26 06:57] LABS: BUN Creatinine Ratio 16.6 (10-20); Calcium 9.1 mg/dl (8.5-10.1); Creatinine Clr Calc Pharmacy 88.6 ml/min; Est GFR (African American) 70.1; Est GFR (Non-African American) 60.5; Potassium 3.7 mmol/L (3.5-5.1)
[2020-02-26] MEDS ORDERED: GLYCOPYRROLATE 0.2 MG/ML VIAL ONE (07:24)
[2020-02-26] MEDS ORDERED: PHENYLEPHRINE 100MCG/ML 5ML SYR IV PRN (07:46)
[2020-02-26] MEDS ORDERED: ePHEDrine sulfate 50 MG/ML AMP IV PRN (07:46)
[2020-02-26] MEDS ORDERED: fentaNYL citrate 100 MCG/2 ML VIAL IV PRN (07:46)
[2020-02-26] MEDS ORDERED: LABETALOL HCL IV 5 MG/ML 20ML IV PRN (07:46)
[2020-02-26] MEDS ORDERED: ATROPINE SULFATE 0.1 MG/ML 10ML SYR IV PRN (07:46)
[2020-02-26] MEDS ORDERED: HYDROmorphone INJ 1 MG/ML SYRINGE IV PRN (07:46)
[2020-02-26] MEDS ORDERED: ONDANSETRON INJ 2 MG/ML 2 ML VIAL IV PRN ×2 (07:46→10:53)
--- NOTE | 2020-02-26 09:04 | Operative Report ---
PG Post Operative Report Pre & Post Diagnosis Operation Date: 02/26/20 07:15 Pre-Op Diagnosis: RIGHT KNEE DEGENERATIVE JOINT DISEASE Post-Op Diagnosis: RIGHT KNEE DEGENERATIVE JOINT DISEASE I identified the patient and participated in the time-out.: Yes Procedure Operation Date: 02/26/20 07:15 Actual Procedures p Right Total Knee Arthroplasty (modifier 22: For morbid obesity) (Right) - Matthew Be DO Surgeon Matthew Be DO Strategic Debriefing Specialist Matthew Weaver PAC Estimated Blood Loss 20 Findings Consistent with Post-Op Diagnosis Specimens Right femoral and tibial bone Complications none Disposition Disposition: Recovery Room Indications Lynsey is a pleasant 59-year-old female who is been dealing with chronic increasing right knee pain. X-rays and clinical examination have been diagnostic for advanced osteoarthritis of her right knee. After discussing the risks of the procedure given her morbid obesity, and after years of conservative treatment, she has elected to proceed with a right total knee arthroplasty. Description of Procedure Modifier 22: The patient's BMI is 52.7. Due to her morbid obesity the case took about 50% longer than a standard knee replacement surgery. Implants used: I used a [employer] Vanguard total knee arthroplasty system with a size 67.5 femur, 67 tibia, 31 patella, and a size 10 PS + polyethylene bearing. All components were cemented in place with Palacos G cement. Lynsey arrived [facility] for the above procedure. She was seen in the preoperative holding area and the operative extremity was identified and signed. She was given a preoperative antibiotic, TXA, a spinal anesthetic and an adductor nerve block. She was taken back to the operating room and laid on the table in supine position. She was given basic sedation. The operative knee was then prepped and draped in sterile fashion. A timeout was done, and the patient and the operative extremity was properly identified. A midline incision was made directly over the patella. Dissection was taken down to the extensor mechanism. A subvastus arthrotomy was used. The medial retinaculum was released and the fat pad was mostly excised. The knee was flexed and the ACL, PCL, and meniscus were removed. A drill was sent down the center of the femoral canal followed by an intramedullary jose. Off that jose a distal femoral cutting block was placed. 9 mm was resected off the distal femur at 5 of valgus. A posterior referencing AP sizing guide was then placed on the distal femur. The femur measured to be a size 67.5. 2 drill holes were placed in 3 of external rotation. A 4-in-1 cutting block was then impacted into place. Anterior, posterior, and chamfer cuts were then made. The posterior stabilizing box guide was then impacted into place and the box was resected for the posterior stabilizing component. The proximal tibia was then exposed. A drill was sent down the center of the tibial canal followed by an intramedullary jose. Off that jose a proximal tibial resection guide was placed. The proximal tibia was then resected. The tibia measured to be a size 67. The tibial plate was then placed in the appropriate rotation and the tibia was punched. The posterior aspect of the knee was then opened up and any additional meniscus fragments and osteophytes were removed. Trial components were then placed. I used a size 10 PS plus polyethylene insert. The knee was brought through a full range of motion and felt to be stable. The patella was then everted and 8 mm was resected off the posterior aspect of the patella. The patella measured to be a size 31. 3 peg holes were then drilled. A trial patella was placed. The knee was once again brought through a full range of motion and felt to be stable. Trial components were then removed. The surrounding soft tissues were injected with 100 cc of an orthopedic pain control cocktail. All components were then cemented into place with Palacos G cement. The final polyethylene insert was then snapped into place and the anterior bar was locked. Once cement was dry the tourniquet was deflated. Hemostasis was obtained. A dilute betadyne lavage was then done for 3 minutes. The joint was then irrigated with normal saline solution. The subvastus arthrotomy was then closed with #1 Vicryl suture. The skin was closed with 2-0 Vicryl, 3-0V lock suture, and maeve. A soft compressive dressing was placed. She was then transferred to a hospital bed and taken to the postanesthesia care unit in stable condition. She tolerated the procedure well. Matthew Weaver PA-C, was present for the entire procedure. He was critical for patient positioning, prepping, draping, retraction exposure, wound closure and application of sterile dressing. I attest to the content of the Intraoperative Record and any orders documented therein. Any exceptions are noted below.
--- NOTE | 2020-02-26 10:13 | XRay Report ---
RIGHT KNEE 2 VIEWS History: Right total knee arthroplasty. Degenerative arthritis. Postop. FINDINGS: The patient is status post a right total knee arthroplasty. The hardware is intact. Linear lucency at the anterior cortex of the distal femur appears to be due to postoperative change. Otherwi se, no definite fracture or dislocation. Skin maeve are in place. IMPRESSION: Right total knee arthroplasty. No evidence for hardware complication. ACT 112: Negative or not required by law. Electronically signed by: Sumeet Cadet M.D. 02/26/2020 10:12 AM
--- NOTE | 2020-02-26 10:17 | Anesthesiology Progress Note ---
Date of Service February 26, 2020 Anesthesia Post Procedure Vital Signs Vital Signs: Temp Pulse Pulse Resp BP BP Pulse Ox 02/26/20 10:00 62 14 142/79 H 97 02/26/20 09:50 62 16 157/76 H 96 02/26/20 09:40 67 16 157/84 H 97 02/26/20 09:30 66 16 148/74 H 98 02/26/20 09:21 36.3 C L 75 16 165/76 H 97 02/26/20 05:47 36.6 C 56 L 18 172/84 H 96 Transfer of Care Handoff Completed per policy Notes Mental Status: alert / awake / arousable Patient Amnestic to Procedure: Yes Nausea / Vomiting: adequately controlled Pain: adequately controlled Airway Patency, RR, SpO2: stable & adequate BP & HR: stable & adequate Hydration State: stable & adequate Neuraxial Anesthesia: was administered and sensory block is resolving Anesthetic Complications: no major complications apparent and Pt Satisfied with anesthetic care
[2020-02-26] MEDS ORDERED: HYDROmorphone INJ 0.5 MG/0.5 ML SYR IV PRN (10:53)
[2020-02-26] MEDS ORDERED: NALOXONE HCL 0.4 MG/1 ML VIAL/CARP IV PRN (10:53)
[2020-02-26] MEDS ORDERED: MAGNESIUM HYDROXIDE SUSP 30 ML UDC PO PRN (10:53)
[2020-02-26] MEDS ORDERED: FUROSEMIDE 80 MG TAB PO PRN (10:53)
[2020-02-26] MEDS ORDERED: METOCLOPRAMIDE HCL INJ 5 MG/ML 2 ML VIAL IV PRN (10:53)
[2020-02-26] MEDS ORDERED: POTASSIUM CHLORIDE 10 MEQ TABCR PO PRN (10:53)
[2020-02-26] MEDS ORDERED: bisacodyL 10 MG SUPP PR PRN (10:53)
[2020-02-26] MEDS ORDERED: PHARMACY GLYCEMIC MGMT CONSULT PRN (11:04)
[2020-02-26] MEDS: SODIUM CHLORIDE 0.9% 1000ML 1,000 ML IV SCH ×2 (11:11→20:20)
[2020-02-26] MEDS ORDERED: GLUCOSE 40% GEL 15 GM TUBE PO PRN (11:30)
[2020-02-26] MEDS ORDERED: GLUCAGON FOR INJ 1 MG VIAL IM PRN (11:30)
[2020-02-26] MEDS ORDERED: CARBOHYDRATES FOR HYPOGLYCEMIA PO PRN (11:30)
[2020-02-26] MEDS ORDERED: DEXTROSE 50% 50 ML SYRINGE IV PRN (11:30)
[2020-02-26] MEDS ORDERED: LANTUS PER UNIT CHARGE SQ ONE ×2 (11:30→21:00)
[2020-02-26] MEDS ORDERED: GLUCOSE 10 TABS/TUBE PO PRN (11:30)
[2020-02-26] MEDS: INSULIN ASPART 100 UNITS/ML 3 ML PEN SC SCH ×3 (12:20→21:30)
[2020-02-26] MEDS: OXYCODONE HCL IR 5 MG TAB (IMMEDIATE RELEASE) PO PRN ×3 (12:48→23:08)
[2020-02-26] MEDS: ACETAMINOPHEN 500 MG TAB PO SCH ×2 (13:45→21:57)
[2020-02-26] MEDS: CEFAZOLIN 2000MG 2,000 MG/15 ML SYR IV SCH ×2 (13:46→23:04)
--- NOTE | 2020-02-26 15:19 | Pharmacy Report ---
Pharmacy Glycemic Short Note 2 - Date of Service February 26, 2020 - Glycemic Short BSG Results (Last 24 hours): 02/26/20 02/26/20 02/26/20 05:44 05:52 09:26 Glucose 108 H POC Glucose 108 H 152 H 02/26/20 12:04 Glucose POC Glucose 145 H OUTPATIENT ANTIDIABETIC REGIMEN: * Metformin 500mg PO BID * HbA1c: pending with AM labs ASSESSMENT: * Ms Shin is a 59yo diabetic. She is POD 0, s/p R TKA. * Patient received 8mg PO dexamethasone pre-op, as well as dxm in an ortho prep. This is expected to contribute to significant steroid-induced hyperglycemia. * Patient is ordered a diabetic diet and appears to have tolerated lunch. * Basal/bolus insulin was initiated post-op and will be adjusted as needed. PLAN FOR INPATIENT GLYCEMIC CONTROL: * Hold outpatient oral diabetes medications * Basal insulin * Lantus 20 units SQ post-op, then * Lantus per scale this evening (see MAR for details) * Bolus insulin * NovoLog per scale ACHS or Q6hrs while NPO * Goal Range: Low 110 mg/dL - High 140 mg/dL * Correction Factor: 20 mg/dL/unit * Nutritional / Prandial insulin per carb ratio of 1 unit per 9 grams CHO consumed PLAN FOR DISCHARGE: * pending A1c
[2020-02-26] MEDS: DOCUSATE SODIUM 100 MG CAP PO SCH (20:29)
[2020-02-26] MEDS: ASPIRIN 81 MG ECTAB PO SCH (20:30)
[2020-02-26] MEDS: OXYCODONE HCL 10 MG TABCR (OXYCONTIN) PO SCH (20:30)
[2020-02-26] MEDS: SENNA 8.6 MG TAB PO SCH (20:31)
[2020-02-26] MEDS: PRAVASTATIN SOD 40 MG TAB PO SCH (20:31)
[2020-02-27] MEDS: OXYCODONE HCL IR 5 MG TAB (IMMEDIATE RELEASE) PO PRN ×3 (04:50→23:41)
[2020-02-27 05:03] LABS: Hemoglobin 13.6 g/dL (12.0-16.0); Mean Corpuscular Hemoglobin 30.4 pg (25-34); Mean Corpuscular Hgb Conc 33.2 g/dL (32-36); Mean Corpuscular Volume 91.7 fL (80-100); Mean Platelet Volume 11.1 fL (7.4-10.4); Platelet Count 184 K/uL (130-400); RDW Coefficient of Variation 13.3 % (11.5-14.5); RDW Standard Deviation 44.2 fL (36.4-46.3); Red Blood Count 4.47 M/uL (4.2-5.4); White Blood Count 10.65 K/uL (4.8-10.8)
[2020-02-27 05:35] LABS: BUN Creatinine Ratio 13.5 (10-20); Calcium 8.5 mg/dl (8.5-10.1); Creatinine Clr Calc Pharmacy 107.8 ml/min; Est GFR (African American) 88.8; Est GFR (Non-African American) 76.6; Potassium 4.1 mmol/L (3.5-5.1)
[2020-02-27] MEDS: ACETAMINOPHEN 500 MG TAB PO SCH ×3 (06:15→21:36)
[2020-02-27] MEDS: LEVOTHYROXINE SODIUM 200 MCG TABLET PO SCH (06:16)
--- NOTE | 2020-02-27 06:41 | Orthopedic Progress Note ---
Date of Service February 27, 2020 Assessment & Plan (1) History of total right knee replacement: Overall she is doing fairly well. She is morbidly obese and she is having some pain in the knee. We will have her see physical therapy today for ambulation. I told her that if she is not comfortable going home today, especially if she does not feel safe, then she can stay until tomorrow for a second round of physical therapy. She is on aspirin for DVT prophylaxis. Present on Admission?: Yes Maco Menon was seen and examined at bedside this morning. Overall she is doing fairly well. She has some soreness in the knee. She has been up to go to the bathroom. Aside from the knee pain she has no other complaints. Physical Exam Musculoskeletal: On physical examination of the right knee, the dressing is clean and dry. She has active dorsiflexion and plantarflexion of her right ankle. Sensation is intact throughout. Results & Data ([facility]) Vital Signs (Past 12 Hours) Vital Signs Temp Pulse Resp BP BP Pulse Ox 02/27/20 04:17 36.6 C 62 14 147/69 H 93 02/27/20 00:33 36.4 C L 55 L 14 135/72 97 02/26/20 20:20 64 138/87 02/26/20 19:39 36.4 C L 50 L 20 170/95 H 95 Laboratory Results H & H 02/26/20 02/27/20 Range/Units 05:52 04:26 Hgb 14.5 13.6 (12.0-16.0) g/dL Hct 45.0 41.0 (37-47) % Coagulation 02/26/20 Range/Units 05:52 INR 1.0 (0.9-1.1) Diagnostic Findings Postoperative x-rays of the right knee show the prosthesis to be in anatomic alignment without any evidence of fracture, dislocation, or loosening. PG Care Time/CCT Total # of Minutes Spent Total Time Spent with Patient: Total time spent is greater than 50% in coordination of care (as documented) at patient's floor/unit and/or counseling patient: Coding Level of Care Code None Diagnoses History of total right knee replacement Z96.651
[2020-02-27 06:59] LABS: Estimated Average Glucose 126 mg/dl
[2020-02-27] MEDS ORDERED: LANTUS PER UNIT CHARGE SQ ONE (07:45)
[2020-02-27] MEDS: ASPIRIN 81 MG ECTAB PO SCH ×2 (09:12→20:10)
[2020-02-27] MEDS: DOCUSATE SODIUM 100 MG CAP PO SCH ×2 (09:12→20:09)
[2020-02-27] MEDS: FOLIC ACID 1 MG TAB PO SCH (09:12)
[2020-02-27] MEDS: OXYBUTYNIN CHLORIDE XL 5 MG TABCR PO SCH (09:13)
[2020-02-27] MEDS: MULTIVITAMIN TAB PO SCH (09:13)
[2020-02-27] MEDS: CHOLECALCIFEROL 1,000 UNITS 25 MCG TAB PO SCH (09:13)
[2020-02-27] MEDS: hydroCHLOROthiazide 25 MG TAB PO SCH (09:13)
[2020-02-27] MEDS: OXYCODONE HCL 10 MG TABCR (OXYCONTIN) PO SCH ×2 (09:20→20:09)
[2020-02-27] MEDS: INSULIN ASPART 100 UNITS/ML 3 ML PEN SC SCH ×4 (09:21→21:39)
--- NOTE | 2020-02-27 11:32 | Electrocardiogram Report ---
Test Reason : Blood Pressure : / mmHG Vent. Rate : 055 BPM Atrial Rate : 055 BPM P-R Int : 194 ms QRS Dur : 094 ms QT Int : 460 ms P-R-T Axes : 012 016 039 degrees QTc Int : 440 ms Sinus bradycardia Otherwise normal ECG When compared with ECG of 04-JAN-2019 06:15, No significant change was found Confirmed by Noah Porras ([id number]) on 02/27/2020 11:32:20 AM Referred By: Matthew Be Confirmed By:Noah Porras
--- NOTE | 2020-02-27 14:31 | Pharmacy Report ---
Pharmacy Glycemic Short Note 2 - Date of Service February 27, 2020 - Glycemic Short BSG Results (Last 24 hours): 02/26/20 02/26/20 02/27/20 17:07 20:38 04:26 Glucose 160 H POC Glucose 197 H 197 H 02/27/20 02/27/20 08:23 12:14 Glucose POC Glucose 140 H 146 H OUTPATIENT ANTIDIABETIC REGIMEN: * Metformin 500mg PO BID * HbA1c: pending with AM labs ASSESSMENT: 02/27/20: * BSGs have been relatively well-controlled post-op. * Patient was provided one additional dose of Lantus this morning to cover for any residual effects from yesterday's dexamethasone. * Do not anticipate that patient will require further basal insulin. * Will consider resuming Metformin tomorrow if patient continues to tolerate diet. 02/26/20 * Ms Shin is a 59yo diabetic. She is POD 0, s/p R TKA. * Patient received 8mg PO dexamethasone pre-op, as well as dxm in an ortho prep. This is expected to contribute to significant steroid-induced hyperglycemia. * Patient is ordered a diabetic diet and appears to have tolerated lunch. * Basal/bolus insulin was initiated post-op and will be adjusted as needed. PLAN FOR INPATIENT GLYCEMIC CONTROL: * Hold outpatient oral diabetes medications * Basal insulin * Lantus 20 units SQ this morning * Bolus insulin * NovoLog per scale ACHS or Q6hrs while NPO * Goal Range: Low 110 mg/dL - High 140 mg/dL * Correction Factor: 20 mg/dL/unit * Nutritional / Prandial insulin per carb ratio of 1 unit per 9 grams CHO consumed PLAN FOR DISCHARGE: * Patient's A1c (6.0%) indicates acceptable glycemic control. * Expect that patient may resume home regimen on discharge.
[2020-02-27] MEDS: PRAVASTATIN SOD 40 MG TAB PO SCH (20:10)
[2020-02-27] MEDS: SENNA 8.6 MG TAB PO SCH (20:10)
[2020-02-28] MEDS: ACETAMINOPHEN 500 MG TAB PO SCH (06:05)
[2020-02-28] MEDS: LEVOTHYROXINE SODIUM 200 MCG TABLET PO SCH (06:05)
--- NOTE | 2020-02-28 07:26 | Orthopedic Progress Note ---
Date of Service February 28, 2020 Assessment & Plan (1) History of total right knee replacement: Overall she is doing well. She is motivated with physical therapy. She is morbidly obese and there are some concerns about her stability and her ability to return home. She is on aspirin for DVT prophylaxis. At this point I recommend acute rehab upon discharge. Case management will hopefully be able to set that up today. She is orthopedically stable for discharge if a bed is available. She can follow-up with orthopedics in 2 weeks. Present on Admission?: Yes Maco Menon was seen and examined at bedside this morning. Overall she is improving. She was motivated yesterday with physical therapy but there are some concerns about her returning home. She is complaining of some pain around the right knee . She has no other medical complaints. Physical Exam Musculoskeletal: On physical examination of the right knee, the dressing has been changed. There is a little bit of serous drainage at the inferior aspect of the wound. Her LUZMA hose stocking is in place. She has active dorsiflexion and plantarflexion of her right ankle. Results & Data ([facility]) Vital Signs (Past 12 Hours) Vital Signs Temp Pulse Resp BP BP Pulse Ox 02/28/20 07:09 36.9 C 70 16 144/82 H 95 02/27/20 23:31 36.5 C 58 L 18 168/88 H 98 PG Care Time/CCT Total # of Minutes Spent Total Time Spent with Patient: Total time spent is greater than 50% in coordination of care (as documented) at patient's floor/unit and/or counseling patient: Coding Level of Care Code None Diagnoses History of total right knee replacement Z96.651
[2020-02-28] MEDS: FOLIC ACID 1 MG TAB PO SCH (08:52)
[2020-02-28] MEDS: OXYCODONE HCL 10 MG TABCR (OXYCONTIN) PO SCH (08:52)
[2020-02-28] MEDS: ASPIRIN 81 MG ECTAB PO SCH (08:53)
[2020-02-28] MEDS: CHOLECALCIFEROL 1,000 UNITS 25 MCG TAB PO SCH (08:53)
[2020-02-28] MEDS: hydroCHLOROthiazide 25 MG TAB PO SCH (08:53)
[2020-02-28] MEDS: DOCUSATE SODIUM 100 MG CAP PO SCH (08:53)
[2020-02-28] MEDS: MULTIVITAMIN TAB PO SCH (08:54)
[2020-02-28] MEDS: OXYBUTYNIN CHLORIDE XL 5 MG TABCR PO SCH (08:54)
[2020-02-28] MEDS: OXYCODONE HCL IR 5 MG TAB (IMMEDIATE RELEASE) PO PRN (09:00)
[2020-02-28] MEDS: INSULIN ASPART 100 UNITS/ML 3 ML PEN SC SCH ×2 (09:04→13:16)
[2020-02-28] MEDS ORDERED: METFORMIN HCL 500 MG TAB PO SCH (17:00)
--- NOTE | 2020-02-29 13:29 | Discharge Summary ---
Date of Service February 29, 2020 Admission HPI Per Admitting Provider Lynsey is a pleasant 59-year-old female who has been dealing with chronic increasing right knee pain. X-rays and clinical examination have been diagnostic for advanced osteoarthritis of the right knee. After failing exte nsive conservative treatment, she has elected to proceed with a right total knee arthroplasty. Principal Diagnosis Right total knee arthroplasty Discharge Data Allergies Allergy/AdvReac Type Severity Reaction Status Date / Time ibuprofen Allergy Intermediate hives Verified 02/26/20 05:40 sulfamethoxazole Allergy Intermediate hives Verified 02/26/20 05:40 trimethoprim Allergy Intermediate hives Verified 02/26/20 05:40 shellfish derived Allergy Mild rash Verified 02/26/20 05:40 Bactrim Allergy Unknown hives Verified 09/17/14 09:31 Consultations 02/26/20 10:53 Consult Case Management - Discharge Planning Routine Procedures Performed Operation Date: 02/26/20 07:15 Actual Procedures p Right Total Knee Arthroplasty(Right) - Matthew Be DO Ordered Studies 02/26/20 05:00 US - OR guided needle placemen Routine Hospital Course (1) History of total right knee replacement: On February 26, 2020 Lynsey arrived at [facility] and underwent a right total knee arthroplasty without complication. She had a spinal anesthetic. Postoperatively she was started on aspirin for DVT prophylaxis and transferred to the general orthopedic floors. Her hospital course was uneventful. On postop day #1 her H&H was stable and her pain was well controlled. She was able to participate well with physical therapy doing ambulation and range of motion exercises. On postop day #2 she continued to do well. [facility] She will follow-up with orthopedics in 2 weeks. Total Time Total Time Spent Total Time Spent (In Minutes): 20 Discharge Plan Discharge Items Patient Disposition: Transfer Inpatient Rehab Fac Reason For Visit: RIGHT KNEE DEGENERATIVE JOINT DISEASE Discharge Diagnosis: Right total knee arthroplasty Activity: As commented below Non-emergency contact: Surgeon Call non-emergency contact if: your wound has increased redness and your wound has increased drainage Follow-up/Referrals: Oniel Sy MD [Primary Care Provider] - Diet: Carb Consistent or DM2 Addtl Attending Provider Instructions: Activity and Therapy Recommendations: * If you are using [facility] then therapy will be provided at your home until they feel you have accomplished all of your goals. * If you are using [facility] then Physical Therapy will be provided until they feel you are ready to start Outpatient Physical Therapy. * If you are not using home therapy then Outpatient Physical Therapy should start about 3-5 days from your day of surgery. Therapy will last about 6-10 weeks * It is important not to put a pillow under your knee when you are relaxing or sleeping. It is just as important to make sure you are getting your knee perfectly straight as it is to regain your knee bend. * You were shown a series of exercises in the hospital. Do these exercises three times each day including the exercises you were shown in physical therapy. * Get up and walk several times each day. For the first four weeks, try not to stand or walk for more than one hour at a time. If you do stand or walk for more than one hour, you will not hurt anything, but your leg will likely swell. * As you feel comfortable, you may change from the walker or crutches to a cane and then to independent walking. Medications: * Narcotic You will likely be sent home from the hospital with a prescription for the narcotic pain medication that worked best throughout your stay. * Aspirin Most patients will be required to take Aspirin 81mg twice a day for 6 weeks after surgery. This is obtained [id number] and a prescription is not necessary. * Other medications may be prescribed for specific circumstances. If you have any questions, please call the office at . * Resume previous home medications unless otherwise instructed TEDs/Elastic Stockings: The white elastic stockings help limit swelling and prevent blood clots from forming in your legs.~ The more you wear them, the more they work. Wear them for six weeks. Dressing Care: If the incision is not draining then you may leave the maeve open to air. If there is a little bit of drainage or if the maeve are getting stuck on your clothing then cover the incision with a dry dressing. The maeve will be removed at your 2 week follow-up appointment. Showering: You may shower 5 days from the day of surgery. Let the soapy shower water run over the maeve and pat them dry. Do not scrub or soak the incision. Things To Watch For: * Drainage from the incision site that occurs more than one week after your surgery. * Increased redness at the incision site. * Fever above 102 degrees Fahrenheit. * Unusual chest pain or shortness of breath. * Call [facility] at with any of the above problems Follow-Up Visit: Follow-up with Dr. Be's PA (Matthew Weaver) 2-3 weeks after your day of surgery. He will remove your maeve and answer any questions. If you have any additional questions or concerns, Dr Be is usually in the office at the same time and will be available An appointment was probably scheduled when you signed-up for surgery in the office. If you have any questions call Office Instructions: More detailed instructions as well as Frequently Asked Questions were provided in a folder by our office when you signed-up for surgery. Please review these instructions when you get home. If you have any further questions or concerns, please feel free to call the office at [phone] Pending Studies at Discharge: No Stand-Alone Forms: My [facility] [employer], Smoking Cessation Skilled Items Patient informed of condition?: Yes DNR: No Discharge Level of Care: Acute rehab Communicable Disease: No Discharge Prognosis: Improving Lines: None Urinary Catheter: No Medications and DC Order Prescriptions: New oxycodone 5 mg Tablet 5 mg PO Q4H PRN (Reason: pain) Qty: 40 RF: 0 Continued hydrochlorothiazide 25 mg Tablet 25 mg PO QAM RF: 0 metformin 500 mg Tablet 500 mg PO BID RF: 0 calcium carbonate [Calcium 500] 500 mg calcium (1,250 mg) Tablet 500 mg PO DAILY RF: 0 potassium chloride 10 mEq Capsule, Extended Release 10 meq PO UD PRN (Reason: lasix use) RF: 0 ranitidine HCl 300 mg Tablet 300 mg PO HS RF: 0 furosemide 80 mg Tablet 80 mg PO WK PRN (Reason: Edema) RF: 0 cholecalciferol (vitamin D3) 5,000 unit Capsule 5,000 unit PO DAILY RF: 0 pravastatin 40 mg Tablet 40 mg PO HS RF: 0 oxybutynin chloride 5 mg Tablet Extended Release 24hr 5 mg PO QAM RF: 0 folic acid 1 mg Tablet 2 mg PO DAILY RF: 0 levothyroxine 200 mcg Tablet 200 mcg PO QAM RF: 0 Changed aspirin 81 mg Tablet,Delayed Release (Dr/Ec) 81 mg PO BID Qty: 84 RF: 0 Discharge Orders: Discharge Order (Routine); Ordered 02/27/20 Ordered By: Matthew Fields/Other Patient Handouts: Prediabetes, Diabetes Meal Planning, A1C Admission Data Admit Date/Time: 02/26/20 09:22 Attending Provider: Matthew Be Admit Provider: Matthew Be Primary Care Provider: Oniel Sy Other Providers: [facility] Other Interventions: Discharge Summary Assessment (RN) Last Done: 02/28/20 13:54 DC Date/Time DO NOT enter until pt leaves facility: 02/28/20 15:09 Coding Level of Care Code D/C Day Management <30 mins Diagnoses History of total right knee replacement Z96.651
== END 2020-02-28 15:09 ==
LOC: 3E 05:21 → ASU 05:21